=== PATIENT | female | born 1950 | race Caucasian/White ===

== ENCOUNTER 2018-06-26 10:21 | Day surgery (SDC) | payer SELFPAY ==
[2018-06-24 16:15] VITALS: BMI 19.3
[2018-06-26] MEDS ORDERED: LIDOCAINE HCL 1%, 10 MG/ML (20ML VIAL) ONE (13:35)
[2018-06-26] MEDS ORDERED: MIDAZOLAM HCL 2 MG/2 ML SINGLE DOSE VIAL ONE ×2 (14:08→14:13)
[2018-06-26] MEDS ORDERED: SCOPOLAMINE HYDROBROMIDE 1 PATCH PATCH.TD72 ONE (14:10)
[2018-06-26] MEDS ORDERED: PROPOFOL 20 ML ONE ×4 (14:19→15:11)
[2018-06-26] MEDS ORDERED: BUPIVACAINE HCL/PF 0.5% (5MG/ML) 10 ML VIAL ONE (14:19)
[2018-06-26] MEDS ORDERED: BACITRACIN 15 GM TUBE TOPICAL OINTMENT ONE (14:19)
[2018-06-26] MEDS ORDERED: ceFAZolin 2 GRAM PREMIX BAG IVPB ONE (14:22)
[2018-06-26] MEDS ORDERED: LIDOCAINE 1%/EPI 1:100000 (50 ML MULTI DOSE VIAL) INF ONE ×2 (14:32)
[2018-06-26] MEDS ORDERED: BUPIVACAINE HCL/PF (5 MG/ML) 30 ML VIAL IJ ONE ×2 (14:32)
[2018-06-26] MEDS ORDERED: GENTAMICIN SO4 80 MG/2 ML VIAL ONE (14:45)
[2018-06-26] MEDS ORDERED: ceFAZolin SODIUM 1 GM VIAL ONE (14:45)
[2018-06-26] MEDS ORDERED: ACETAMINOPHEN INJECTION 100 ML IVPB ONE (15:25)
--- NOTE | 2018-06-26 16:02 | OP ---
Operative Note - Note: Operative Date: 06/26/18 Pre-Operative Diagnosis: Capsular contracture both breasts with malposition Operation: Bilateral Capsulotomy removal and replacement Implants: Natrelle breast see op Surgeon: Bandar Ferrer Anesthesia: General Specimens Removed: bilateral intact breast saline siltex mentor 350 cc implants filled to 370 Estimated Blood Loss (mls): 20 Operative Report Dictated: Yes
[2018-06-26] MEDS ORDERED: ONDANSETRON 4 MG/2 ML VIAL IVPUSH PRN (16:14)
[2018-06-26] MEDS ORDERED: oxyCODONE HCL 5 MG TABLET PO PRN (16:14)
[2018-06-26] MEDS ORDERED: LACTATED RINGERS SOLUTION 1,000 ML IV SCH (16:15)
[2018-06-26 18:57] VITALS: BP 110/62; PULSE 82; TEMP 98.6
--- NOTE | 2018-06-28 09:48 | OP ---
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 PREOPERATIVE DIAGNOSIS: Bilateral capsular contracture of breast with malposition. POSTOPERATIVE DIAGNOSIS: Bilateral capsular contracture of breast with malposition. OPERATIVE PROCEDURE: Bilateral capsulotomy, removal and replacement of bilateral breast implants for augmentation. OPERATIVE INDICATION: Patient is a 67-year-old white female who underwent breast augmentation many years prior and now presents with bilateral capsular contracture, lateral displacement of her breast implants with significant asymmetry and chest wall deformity. OPERATIVE PROCEDURE IN DETAIL: Patient was taken to the operating room and after induction of general anesthesia in the supine position both arms were extended and padded, Venodyne boots were placed and he entire chest wall was painted with ChloraPrep solution over its entire extent. The patient who was marked in the standing position preoperatively in the holding area after significant discussion about volume, size, shape, the risks and benefits of surgical versus nonsurgical alternatives as well as material complications of implant replacement were described to the patient in detail all questions were asked and answered. At this point after placement of sterile drapes and prepping and draping in the usual fashion attention was turned to the previous inframammary incisions in the lower portion of the breasts. Significant asymmetry was seen in the breast shape and size and the left breast had an inframammary fold scar from previous surgery. At this point 1% local lidocaine anesthesia with 1:100,000 epinephrine and 0.5% Marcaine plain was injected into the scar itself and then laterally as a ring block circumferentially around the breast itself for hemostasis and anesthesia. After allowing topical anesthesia and hemostasis attention was turned to the breast. Incision was made down through the scar of the right breast down through the subcutaneous tissue down to underlying capsule. I then performed a capsulotomy opening the capsule and the right breast implant was removed. This was a [place] Siltex saline shaped implant and was filled to 370-mL volume. The overall shape was much too narrow for the patient and she had a significantly wide displacement of her implant in a lateral position. The implant was then removed and the capsule itself was injected medially, superiorly, laterally and inferiorly, then performing a capsulotomy significantly on the medial side to elevate the tissues. A significant bony deformity with excavatum was seen preoperatively and the dissection was carried medially towards the sternum. The pocket was then opened for placement of a wider more aesthetically shaped implant which was chosen by the base diameter of the patient's preoperative evaluation and 3-D image. At this point a [employer] SoftTouch style SSM 405-mL volume was placed. Good shape and contour were seen on the right breast and then attention was turned to the left side. The only significant difference was the fact that the left breast had a significant scar deformity from apparent skin necrosis issues on the left breast which showed adherence at the inframammary fold. This was elevated subcutaneously and the pocket was injected and the exact same procedure was carried out symmetrically to the opposite side and the implant was placed in a much more medial position to fill the chest wall and give better symmetry. The patient was placed in the sitting position. Good symmetry was seen from both breasts after significant capsulotomies were performed. Copious irrigation of the implants with triple-antibiotic solution and Betadine was carried out through the entire pocket and the pocket was examined for any evidence of lesions which were not found. Copious irrigation was carried out on both sides and then the pockets were closed symmetrically using 3-0 PDS suture on the deep layer of capsule and subcutaneous tissue, 3-0 in a deep dermal fashion and 4-0 Biosyn in a subcuticular fashion for a 3-layered closure. This was carried out symmetrically on both sides. Dermabond and Steri-Strip dressing were placed over the incisions and then a Surgi-bra with fluff dressings were placed on the breasts. Patient tolerated the procedure well. She was awakened, extubated and transferred to the recovery room in satisfactory condition. TRISTEN FERRER M.D. [id number]
== END 2018-06-26 18:40 | disposition home or self-care (01) ==
LOC: JASU-SURG 10:21
PROVIDERS: ATTEND Plastic Surgery
PROC: 0HRV0JZ Replacement of Bilateral Breast with Synthetic Substitute, Open Approach (ICD-10-PCS; 2018-06-26)
PROC: 0HPU0JZ Removal of Synthetic Substitute from Left Breast, Open Approach (ICD-10-PCS; 2018-06-26)
PROC: 0HPT0JZ Removal of Synthetic Substitute from Right Breast, Open Approach (ICD-10-PCS; 2018-06-26)
PROC: 0HRV0JZ Replacement of Bilateral Breast with Synthetic Substitute, Open Approach (ICD-10-PCS; 2018-06-26)
PROC: 0HNV0ZZ Release Bilateral Breast, Open Approach (ICD-10-PCS; principal; 2018-06-26 13:00)
DX: T85.44XA Capsular contracture of breast implant, initial encounter (principal); T85.42XA Displacement of breast prosthesis and implant, initial encounter; Y82.8 Other medical devices associated with adverse incidents; Y92.9 Unspecified place or not applicable
CPT/HCPCS: 94760; J0131